=== PATIENT | male | born 1960 | race Caucasian/White ===

== ENCOUNTER 2021-12-19 11:20 | Emergency (ER) | payer OTHER ==
[~2021-12-19] VITALS: Ht 185.4 cm; Wt 122.5 kg
--- NOTE | 2021-12-21 08:27 | EKG ---
[facility] [address] [place] [address] Signed Normal sinus rhythm Normal ECG No previous ECGs available Confirmed by REJI BHARDWAJ MD ([id number] on 12/21/2021 8:27:07 AM Electronically Signed By: REJI BHARDWAJ MD 12/21/21 0827 PATIENT NAME: WILLIAM HITCHCOCK CARMENCITA Electrocardiogram DATE OF : 62 PHYSICIAN: REJI BHARDWAJ MD REPORT #: [id number] REPORT IS CONFIDENTIAL AND NOT TO BE RELEASED WITHOUT AUTHORIZATION
== END 2021-12-19 13:40 | disposition home or self-care (01) ==
LOC: ED 11:20
DX: R55 Syncope and collapse (principal); R19.7 Diarrhea, unspecified; I10 Essential (primary) hypertension
CPT/HCPCS: 36415; 80053; 83735; 84484; 85025; 93005; 93010; 99284-25